=== PATIENT | female | born 1995 | race American Indian/Alaskan Native ===

== ENCOUNTER 2018-10-27 23:30 | Emergency (ER) | payer BC ==
[2018-10-28 02:11] LABS: Bacteria,Urine 1+ /HPF (Negative); Bilirubin,Urine NEG (Negative); Blood,Urine NEG (Negative); Color,Urine Red (Yellow); Protein,Urine <15 mg/dL mg/dL (Negative); Sperm,Urine FEW /HPF (NP); Urobilinogen,Urine < 2.0 mg/dL (<2.0)
[2018-10-28 02:36] LABS: HCG Qualitative,Urine Negative (Negative)
[2018-10-28] MEDS ORDERED: DIFLUCAN PO ONE (03:54)
--- NOTE | 2018-10-28 04:57 | Emergency Department Report ---
ED Female HPI - General Chief complaint: Urogenital-Female Stated complaint: VAGINAL IRRITATION Time Seen by Provider: 10/28/18 04:28 Source: patient Mode of arrival: Ambulatory Limitations: No Limitations - History of Present Illness Initial comments: Patient is a 23-year-old AA female with no past medical history presents to the ED, in no acute onset persistent irritation, the correct place on discharge and itching for the last 2 weeks. Patient states that she suspected that she had vaginal yeast infection and bought [id number] Monistat and he used it for 3 days with no relief. Patient states that her symptoms got worse and the rash has spread from her vaginal area to her groin in the last 1 week. Patient denies dysuria, fever, chills, nausea, vomiting, urinary frequency and urgency, abdominal pain, vaginal bleeding, diarrhea, cough, back pain or headache. MD Complaint: vaginal discharge, other (vaginal irritation) -: Sudden, week(s) (2) Location: labia, perineum Radiation: non-radiating Severity: moderate Severity scale (0 -10): 5 Quality: burning, aching, other (itching) Consistency: constant Improves with: none Worsens with: none Are you Now?: No Associated Symptoms: denies other symptoms, vaginal discharge, rash (erythematous maculopapular dry scaly rashes in the perineum). denies: vaginal bleeding, abdominal pain, nausea/vomiting, fever/chills, headaches, loss of appetite, dysuria, shortness of breath, syncope, weakness - Related Data Sexually active: Yes : 0 Para: 0 A: 0 Previous Rx's Medication Instructions Recorded Last Taken Type Fluconazole [Diflucan TAB] 150 mg PO ONCE #3 tablet 10/28/18 Unknown Rx Nystatin Oint [Mycostatin Oint] 1 applicatio TP BID #1 tube 10/28/18 Unknown Rx Sulfamethoxazole/Trimethoprim 1 each PO Q12H #20 tablet 10/28/18 Unknown Rx [Bactrim DS TAB] Allergies Allergy/AdvReac Type Severity Reaction Status Date / Time No Known Allergies Allergy Verified 10/28/18 03:55 ED Review of Systems ROS: Stated complaint: VAGINAL IRRITATION Other details as noted in HPI Constitutional: denies: chills, fever Eyes: denies: eye pain, eye discharge, vision change ENT: denies: ear pain, throat pain Respiratory: denies: cough, shortness of breath, wheezing Cardiovascular: denies: chest pain, palpitations Endocrine: no symptoms reported Gastrointestinal: denies: abdominal pain, nausea, diarrhea Genitourinary: discharge (white thick ). denies: urgency, dysuria Musculoskeletal: denies: back pain, joint swelling, arthralgia Skin: rash (erythematous maculopapular dry scaly rashes in the perineum, labia and groins), pruritus. denies: lesions Neurological: denies: headache, weakness, paresthesias Psychiatric: denies: anxiety, depression Hematological/Lymphatic: denies: easy bleeding, easy bruising ED Past Medical Hx - Past Medical History Previous Medical History?: No - Surgical History Past Surgical History?: No - Social History Smoking Status: Former Smoker Substance Use Type: Alcohol - Medications Home Medications: Home Medications Medication Instructions Recorded Confirmed Last Taken Type Fluconazole [Diflucan TAB] 150 mg PO ONCE #3 tablet 10/28/18 Unknown Rx Nystatin Oint [Mycostatin Oint] 1 applicatio TP BID #1 tube 10/28/18 Unknown Rx Sulfamethoxazole/Trimethoprim 1 each PO Q12H #20 tablet 10/28/18 Unknown Rx [Bactrim DS TAB] ED Physical Exam - General Limitations: No Limitations General appearance: alert, in no apparent distress - Head Head exam: Present: atraumatic, normocephalic, normal inspection - Eye Eye exam: Present: normal appearance, PERRL, EOMI. Absent: scleral icterus, conjunctival injection, nystagmus, periorbital swelling, periorbital tenderness Pupils: Present: normal accommodation - ENT ENT exam: Present: normal exam, normal orophraynx, mucous membranes moist, TM's normal bilaterally, normal external ear exam - Neck Neck exam: Present: normal inspection, full ROM - Respiratory Respiratory exam: Present: normal lung sounds bilaterally. Absent: respiratory distress, wheezes, rales, rhonchi, chest wall tenderness, decreased breath sounds, prolonged expiratory - Cardiovascular Cardiovascular Exam: Present: normal rhythm, tachycardia, normal heart sounds. Absent: systolic murmur, diastolic murmur, rubs, gallop - GI/Abdominal GI/Abdominal exam: Present: soft, normal bowel sounds. Absent: tenderness, rebound, hyperactive bowel sounds, bruit, pulsatile mass - Rectal Rectal exam: Present: deferred - Extremities Exam Extremities exam: Present: normal inspection, full ROM, normal capillary refill - Back Exam Back exam: Present: normal inspection, full ROM. Absent: CVA tenderness (L), muscle spasm - Neurological Exam Neurological exam: Present: alert, oriented X3, CN II-XII intact, normal gait, reflexes normal - Psychiatric Psychiatric exam: Present: normal affect, normal mood - Skin Skin exam: Present: warm, dry, intact, normal color, rash (erythematous maculopapular dry scaly rashes on groin, labia and perineum), erythema (erythematous maculopapular) ED Course Vital Signs 10/27/18 23:47 Temperature 98.4 F Pulse Rate 108 H Respiratory 18 Rate Blood Pressure 116/78 O2 Sat by Pulse 96 Oximetry - Reevaluation(s) Reevaluation #1: 10/28/18 05:05 Patient is alert and oriented 3 and is not in distress. Patient was treated in the ED with Diflucan 150 mg by mouth 1. Urinalysis shows acute urinary tract infection. Patient was discharged home on antibiotics and Diflucan and advised to follow-up with [facility] physician or primary care physician in 5-7 days for reevaluation. Patient was advised to return to the ED immediately if symptoms get worse. ED Medical Decision Making - Medical Decision Making Patient is alert and oriented 3 and is not in distress. Patient was treated in the ED with Diflucan 150 mg by mouth 1. Urinalysis shows acute urinary tract infection. Patient was discharged home on antibiotics and Diflucan and advised to follow-up with [facility] physician or primary care physician in 5-7 days for reevaluation. Patient was advised to return to the ED immediately if symptoms get worse. - Differential Diagnosis vaginal candidiasis; tinea cruris; acute UTI Critical care attestation.: If time is entered above; I have spent that time in minutes in the direct care of this critically ill patient, excluding procedure time. ED Disposition Clinical Impression: Vaginal candidiasis, Acute urinary tract infection, Tinea cruris Disposition: TO HOME OR SELFCARE Is pt being admited?: No Does the pt Need Aspirin: No Condition: Stable Instructions: Jock Itch (ED), Vulvovaginal Candidiasis (ED), Urinary Tract Infection in Women (ED) Additional Instructions: Take medications with food, drink plenty of fluids and follow-up with your primary care physician in 7-10 days for reevaluation. Return to the ED immediately if symptoms get worse. Prescriptions: Sulfamethoxazole/Trimethoprim [Bactrim DS TAB] 1 each PO Q12H #20 tablet Fluconazole [Diflucan TAB] 150 mg PO ONCE #3 tablet Nystatin Oint [Mycostatin Oint] 1 applicatio TP BID #1 tube Referrals: HANANE ONTIVEROS MD [Primary Care Provider] - 3-5 Days [facility] [Outside] - 3-5 Days Time of Disposition: 04:54 Print Language: SLOVAK
[2018-10-28 05:27] VITALS: BP 151/107
== END 2018-10-28 05:27 | disposition home or self-care (01) ==
LOC: ED 23:30
DX: B37.3 Candidiasis of vulva and vagina (principal); N39.0 Urinary tract infection, site not specified; B35.6 Tinea cruris; Z87.891 Personal history of nicotine dependence
CPT/HCPCS: 81001; 81025; 87086

== ENCOUNTER 2018-11-07 16:40 | Emergency (ER) | payer BC ==
[2018-11-07] MEDS ORDERED: NACL 0.9% 1000 ML 1,000 ML IV ONE ×2 (17:02→22:32)
--- NOTE | 2018-11-07 17:03 | Event Note ---
ED Screening Note ED Screening Note: no meds no pmh weak new DM This initial assessment/diagnostic orders/clinical plan/treatment(s) is/are sub ject to change based on patients health status, clinical progression and re- assessment by fellow clinical providers in the ED. Further treatment and workup at subsequent clinical providers discretion. Patient/guardian urged not to elope from the ED as their condition may be serious if not clinically assessed and managed. Initial orders include: labs urine fluid
[2018-11-07 17:57] LABS: Basophils # (Auto) 0.1 K/mm3 (0.0-0.1); Basophils % (Auto) 0.7 % (0.0-1.8); Eosinophils % (Auto) 0.3 % (0.0-4.3); Lymphocytes # (Auto) 2.2 K/mm3 (1.2-5.4); Lymphocytes % (Auto) 26.5 % (13.4-35.0); Mean Corpuscular HGB Conc 33 % (30-34); Mean Corpuscular Volume 88 fl (79-97); Monocytes # (Auto) 0.7 K/mm3 (0.0-0.8); Monocytes % (Auto) 8.5 % (0.0-7.3); Platelet Count 293 K/mm3 (140-440); Red Blood Count 5.59 M/mm3 (3.65-5.03); Red Cell Distribution Width 15.1 % (13.2-15.2)
[2018-11-07 18:22] LABS: Alanine Aminotransferase 14 units/L (7-56); Albumin 4.5 g/dL (3.9-5); BUN/Creatinine Ratio 7; Blood Urea Nitrogen 5 mg/dL (7-17); Calcium 9.6 mg/dL (8.4-10.2); Hemolysis Index 8
[2018-11-07] MEDS ORDERED: ZOFRAN IV ONE (19:51)
--- NOTE | 2018-11-07 19:55 | Emergency Department Report ---
ED General Adult HPI - General Chief complaint: Hyperglycemia Stated complaint: N/V Time Seen by Provider: 11/07/18 17:00 Source: patient Mode of arrival: Wheelchair Limitations: No Limitations - History of Present Illness Initial comments: Patient is 23 years old female with no significant past medical history. Patient presented to the ER via EMS stating that she has been having generalized weakness, nausea and vomiting. She stated that she is unable to keep anything down. Patient stated that she was never been diagnosed with diabetes. Patient found to have a blood sugar of 353 by EMS and is down to 282 in triage. Patient denied any chest pain or shortness of breath. Patient also denied any fever or chills. She stated that she's been having a yeast infection for the last few weeks that is not resolved with [id number] medication. - Related Data Previous Rx's Medication Instructions Recorded Last Taken Type Fluconazole [Diflucan TAB] 150 mg PO ONCE #3 tablet 10/28/18 Unknown Rx Nystatin Oint [Mycostatin Oint] 1 applicatio TP BID #1 tube 10/28/18 Unknown Rx Sulfamethoxazole/Trimethoprim 1 each PO Q12H #20 tablet 10/28/18 Unknown Rx [Bactrim DS TAB] Allergies Allergy/AdvReac Type Severity Reaction Status Date / Time No Known Allergies Allergy Verified 11/07/18 17:22 ED Review of Systems ROS: Stated complaint: N/V Other details as noted in HPI Comment: All other systems reviewed and negative Constitutional: denies: chills, fever Respiratory: denies: cough, orthopnea, shortness of breath, SOB with exertion, S OB at rest, wheezing Cardiovascular: denies: chest pain, palpitations Gastrointestinal: nausea, vomiting. denies: abdominal pain, diarrhea, constipat ion, hematemesis, melena, hematochezia Genitourinary: denies: urgency Neurological: weakness (generalized). denies: headache Psychiatric: denies: depression ED Past Medical Hx - Past Medical History Previous Medical History?: No - Surgical History Past Surgical History?: No - Social History Smoking Status: Never Smoker Substance Use Type: Alcohol - Medications Home Medications: Home Medications Medication Instructions Recorded Confirmed Last Taken Type Fluconazole [Diflucan TAB] 150 mg PO ONCE #3 tablet 10/28/18 Unknown Rx Nystatin Oint [Mycostatin Oint] 1 applicatio TP BID #1 tube 10/28/18 Unknown Rx Sulfamethoxazole/Trimethoprim 1 each PO Q12H #20 tablet 10/28/18 Unknown Rx [Bactrim DS TAB] ED Physical Exam - General Limitations: No Limitations General appearance: alert, in no apparent distress - Head Head exam: Present: atraumatic, normocephalic, normal inspection - Eye Eye exam: Present: normal appearance, PERRL - ENT ENT exam: Present: mucous membranes moist - Neck Neck exam: Present: normal inspection, full ROM. Absent: tenderness, meningismus - Respiratory Respiratory exam: Present: normal lung sounds bilaterally - Cardiovascular Cardiovascular Exam: Present: regular rate, tachycardia, normal heart sounds - GI/Abdominal GI/Abdominal exam: Present: soft, normal bowel sounds. Absent: distended, tenderness, guarding, rebound, rigid - Extremities Exam Extremities exam: Present: normal inspection, full ROM, normal capillary refill - Neurological Exam Neurological exam: Present: alert, oriented X3, CN II-XII intact, normal gait - Skin Skin exam: Present: warm, dry, intact ED Course Vital Signs 11/07/18 17:14 Temperature 99.5 F Pulse Rate 110 H Respiratory 16 Rate Blood Pressure 110/75 [Right] O2 Sat by Pulse 99 Oximetry ED Medical Decision Making - Lab Data Result diagrams: 11/07/18 17:42 11/07/18 17:42 - Medical Decision Making Patient is 23 years old female with no significant past medical history. Shannan squires presented to the ER via EMS stating that she has been having generalized weakness, nausea and vomiting. She stated that she is unable to keep anything down. Patient stated that she was never been diagnosed with diabetes. Patient found to have a blood sugar of 353 by EMS and is down to 282 in triage. Patient denied any chest pain or shortness of breath. Patient also denied any fever or chills. She stated that she's been having a yeast infection for the last few weeks that is not resolved with [id number] medication. Patient received 2 L of fluids. Patient stated that she is feeling much better. Patient symptoms is consistent with DKA but patient refused to be admitted to the hospital and stated that she will follow up with a primary care physician in the next 2-3 days. I prescribed metformin and Diflucan for her yeast infection. Critical care attestation.: If time is entered above; I have spent that time in minutes in the direct care of this critically ill patient, excluding procedure time. ED Disposition Clinical Impression: DKA (diabetic ketoacidoses), Vaginal candidiasis Disposition: TO HOME OR SELFCARE Is pt being admited?: No Condition: Stable Instructions: Diabetic Ketoacidosis (ED), Vulvovaginal Candidiasis (ED) Referrals: [facility] [Provider Group] - 3-5 Days
[2018-11-07 20:49] LABS: Bacteria,Urine 2+ /HPF (Negative); Bilirubin,Urine NEG (Negative); Blood,Urine NEG (Negative); Color,Urine Yellow (Yellow); HCG Qualitative,Urine Negative (Negative); Mucus,Urine 1+ /HPF; Urobilinogen,Urine < 2.0 mg/dL (<2.0)
[2018-11-08] MEDS ORDERED: HumuLIN R ONE (00:41)
[2018-11-08 00:43] VITALS: BP 121/59
[2018-11-08] MEDS ORDERED: HumuLIN R IV ONE (00:50)
[2018-11-08] MEDS ORDERED: REGLAN IV ONE (01:07)
== END 2018-11-08 01:28 | disposition home or self-care (01) ==
LOC: ED 16:40
DX: E11.10 Type 2 diabetes mellitus with ketoacidosis without coma (principal); B37.3 Candidiasis of vulva and vagina; R53.1 Weakness; R11.2 Nausea with vomiting, unspecified; Z79.899 Other long term (current) drug therapy
CPT/HCPCS: 36415; 80053; 81001; 81025; 82805; 82962; 84443; 85025; 87086; 96361; 96374; 96375; 99284; J2405; J2765; J7030; J1815